=== PATIENT | female | born 1960 | race Caucasian/White ===

== ENCOUNTER 2019-08-12 12:58 | Outpatient (CLI) | payer OTHER ==
--- NOTE | 2019-08-12 14:28 | MRI ---
MRI LUMBAR SPINE WITH IV CONTRAST: Indications: Spinal cord mass. Correlation: Unenhanced MRI lumbar spine from [place], [place], 07-15-2019. These images are available for comparison . FINDINGS: There is enhancing intradural mass involving the cauda equina at the L3 level. This mass shows marked homogeneous enhancement and is circumscribed. This measures 1.5 cm craniocaudal x 1.0 cm AP dimensio n. The lumbar vertebrae maintain height and alignment. There is degenerative disc change at L5-S1 with l oss of disc space and degenerative disc at ===== signal changes. There is a disc protrusion at L5-S1 with associated broad based bulge. Small inferior extension of the disc protrusion centrally is noted . This abuts the anterior thecal sac without significant compression of the thecal sac. The thecal sa c is congenitally smaller without significant central canal stenosis at this location. The other disc levels are unremarkable with no other significant bulge or protrusion. There is facet arthrosis and hypertrophy at the other lumbar levels, however, no evidence of significant central can al or foraminal stenosis. IMPRESSION: 1. There is an intradural mass involving the cauda equina at the L3 level. Differential consideration s include ependymoma, schwannoma, and intradural metastasis. 2. Degenerative disc change at L5-S1 with a small central protrusion at this level as described above . POS: [facility]
== END 2019-08-12 12:59 | disposition home or self-care (01) ==
LOC: TBSIIMAG 12:58
PROVIDERS: ATTEND Neurological Surgery
DX: G95.89 Other specified diseases of spinal cord (principal); M51.37 Other intervertebral disc degeneration, lumbosacral region; M51.27 Other intervertebral disc displacement, lumbosacral region
CPT/HCPCS: 72149; 82565

== ENCOUNTER 2019-09-02 07:57 | Outpatient (CLI) | payer OTHER | END 2019-09-02 07:58 | disposition home or self-care (01) | LOC: LABBT 07:57 | PROVIDERS: ATTEND Neurological Surgery | DX: Z01.812 Encounter for preprocedural laboratory examination (principal); Z11.59 Encounter for screening for other viral diseases; G95.89 Other specified diseases of spinal cord | CPT/HCPCS: 87635; U0003 ==

== ENCOUNTER 2019-09-02 11:15 | Inpatient (IN) | payer OTHER ==
[2019-09-03 08:58] VITALS: BMI 24.7
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
[2019-09-13] MEDS ORDERED: Thrombin 5000 UNITS/5 ML VIAL ONE ×2 (06:11→07:44)
[2019-09-13] MEDS ORDERED: Bupivacaine PF 0.5% 30 ML VIAL ONE (06:11)
[2019-09-13] MEDS ORDERED: EPINEPHrine 1 MG/ML AMP ONE (06:11)
[2019-09-13] MEDS ORDERED: Midazolam HCl 2 mg/2 ml Vial ONE (06:40)
[2019-09-13] MEDS ORDERED: Fentanyl 100 MCG/2 ML VIAL ONE ×3 (06:40→10:46)
[2019-09-13] MEDS ORDERED: HYDROmorphone 2 MG/ML VIAL SLOW IVP PRN (10:18)
[2019-09-13] MEDS ORDERED: Meperidine HCl/PF 25 MG/ML VIAL SLOW IVP PRN (10:18)
[2019-09-13] MEDS ORDERED: PACU-Morphine 4MG/ML VIAL SLOW IVP PRN (10:18)
[2019-09-13] MEDS ORDERED: Ondansetron HCl/PF 4 MG/2 ML Vial IVP PRN (10:18)
[2019-09-13] MEDS ORDERED: Promethazine HCl 25 MG/ML VIAL IM PRN (10:18)
[2019-09-13] MEDS ORDERED: Acetaminophen/Codeine 30-300mg Tablet PO PRN (10:20)
[2019-09-13] MEDS ORDERED: Ondansetron PF 4 MG/2 ML Vial IVP PRN (10:20)
[2019-09-13] MEDS ORDERED: Mag-Al 1200 mg/1200 mg/30 ML UDCUP PO PRN (10:20)
[2019-09-13] MEDS ORDERED: Bisacodyl 10 MG SUPP PR PRN (10:20)
[2019-09-13] MEDS ORDERED: Morphine 2 MG/ML SYRINGE SLOW IVP PRN (10:20)
[2019-09-13] MEDS ORDERED: diphenhydrAMINE 50 MG/ML VIAL IVP PRN (10:20)
[2019-09-13] MEDS ORDERED: Acetaminophen 325 MG TAB PO PRN (10:20)
--- NOTE | 2019-09-13 10:38 | OP ---
DATE OF PROCEDURE: 09/13/2019 DISPATCH OFFICER: David López PA-C. INDICATION: Obtain diagnosis and prevent neurologic decline. DIAGNOSIS: Intrathecal lumbar mass. PROCEDURES: L3-L4 laminectomy, opening of the thecal sac, resection of intrathecal tumor, and closure primarily of the dura. ANESTHESIA: General. DESCRIPTION OF PROCEDURE: The patient was brought into the operating room and placed under general anesthesia. She was flipped from the supine to prone position on operating room table. A linear incision was planned over the L3 through top of the L5 segments. After prepping and draping and after an appropriate operative pause, the incision was created. The soft tissues were swept away from midline. Self-retaining retractors were placed. A C-arm image was obtained to confirm the appropriate level. An Adson rongeur was used to remove the spinous process of L3 and L4 as well as the inferior aspect of L2 and the superior aspect of L5. High-speed cutting drill bit as well as 2-, 3- and 4-mm Kerrisons were then used to perform a laminectomy spanning all of L3 and L4 as well as the inferior aspect of L2 and superior aspect of L5. The laminectomy was extended laterally to encompass the medial aspect of the facet joints. Judicious hemostasis was maintained throughout. Once the laminectomy was performed, there was mild discoloration in the dura around the upper aspect of L3 as well as slight bulges in the dura consistent with the location of the lesion as noted on the patient's MRI scan. The operating microscope was then brought into the operative field for microdissection techniques. An 11-blade knife was then used to perform a midline durotomy. 4-0 tack-up stitches were used to secure the dura. The underlying arachnoid was identified and also incised and secured to the dura using small vascular clips. After opening the dura and the arachnoid, we immediately identified a yellowish-shafer mass, that was not very well circumscribed. It did not appear to emanate from any single nerve root as is often the case with nerve sheath schwannomas. It appeared to be somewhat entangled and infiltrated by at least one nerve root and what was likely the filum terminale. Small patties were placed in the cephalad and caudal confines of the durotomy in order to minimize egress of blood and tumor. Using microsurgical techniques, the tumor was removed with near-total resection. There was tumor densely adhered and what appeared to be infiltrative of at least 2 nerve roots and that could not be safely removed. After removing the tumor, it was sent for permanent sections. The area was copiously irrigated. All of the nerve roots remained intact without any concern for significant damage to the nerve roots. The dura was then closed in a primary fashion using a 4-0 running Prolene suture. DuraSeal was then carefully placed over the suture line. There was no evidence for egress of spinal fluid following dural closure. The rest of the wound was then copiously irrigated again and hemostasis was maintained throughout. The wound was then closed in anatomic layers and a pressure dressing was applied. There were no known procedural complications. Job ID: [id number] [facility]
[2019-09-13] MEDS ORDERED: Glycopyrrolate 0.2 MG/ML 5 ML SYRINGE ONE (11:21)
[2019-09-13] MEDS ORDERED: diphenhydrAMINE 50 MG/ML VIAL ONE (11:21)
[2019-09-13] MEDS ORDERED: EPHEDRINE 25 MG/5 ML SYRINGE ONE (11:21)
[2019-09-13] MEDS ORDERED: Ketorolac Tromethamine 30 MG/ML VIAL ONE (11:21)
[2019-09-13] MEDS ORDERED: Rocuronium Bromide 10 MG/ML (10ML VIAL) ONE (11:21)
[2019-09-13] MEDS ORDERED: Dexamethasone 20 MG/5 ML VIAL ONE (11:21)
[2019-09-13] MEDS ORDERED: PROPOFOL 200 MG/20 ML VIAL ONE (11:21)
[2019-09-13] MEDS ORDERED: Ondansetron PF 4 MG/2 ML Vial ONE (11:21)
[2019-09-13] MEDS: Acetaminophen/Codeine 30-300mg Tablet PO PRN ×3 (12:27→21:24)
[2019-09-13] MEDS: Cyclobenzaprine 10 MG TAB PO PRN ×2 (13:49→21:56)
[2019-09-13] MEDS: CEFAZOLIN 2 GM in Premix Bag 1 BAG IVPB SCH ×2 (13:50→21:17)
[2019-09-13] MEDS: Sodium Chloride 0.9% 1,000 ML IV SCH ×2 (18:13→23:59)
[2019-09-13] MEDS ORDERED: traZODone HCl 50 MG TAB PO SCH (21:00)
[2019-09-14] MEDS: Acetaminophen/Codeine 30-300mg Tablet PO PRN ×2 (03:11→08:40)
[2019-09-14 06:23] LABS: #Lymphocytes 1.3 thou/uL (1.20-3.40); #Monocytes 0.9 thou/uL (0.11-0.59); #Neutrophils 5.5 thou/uL (1.40-6.50); %Eosinophils 0.2 % (0.0-10.0); %Lymphocytes 17.3 % (21.0-51.0); %Monocytes 11.6 % (0.0-10.0); %Neutrophils 70.8 % (42.0-75.0); Mean Corpuscular HGB CONC 34.5 g/dL (32.0-36.0); Mean Corpuscular Hemoglobin 34.1 pg (27.0-31.0); Mean Corpuscular Volume 98.9 fL (78.0-98.0); Mean Platelet Volume 8.6 fL (7.4-10.4); Platelet Count 169 thou/uL (130-400); RBC Distribution Width 11.7 % (11.5-14.5); White Blood Cell (WBC) Count 7.7 thou/uL (4.8-10.8)
[2019-09-14 06:44] LABS: Anion Gap 10 mmol/L (10-20); BUN (Urea Nitrogen) 18 mg/dL (9.8-20.1); Calc. Creatinine Clearance 54 mL/min (70-130); Calcium 8.8 mg/dL (7.8-10.44); Carbon Dioxide 31 mmol/L (22-29); Chloride 105 mmol/L (98-107); Estimated GFR-MDRD 50; Glucose 107 mg/dL (70-105); Potassium 3.7 mmol/L (3.5-5.1); Sodium 142 mmol/L (136-145)
[2019-09-14 08:07] VITALS: BP 107/67; TEMP 98.3
[2019-09-14] MEDS ORDERED: Lisinopril/Hydrochlorothiazide 20 mg/12.5 mg Tablet PO SCH (09:00)
[2019-09-14] MEDS ORDERED: Loratadine 10 MG TAB PO SCH (09:00)
--- NOTE | 2019-09-14 11:10 | PRG ---
DATE OF SERVICE: 09/14/2019 Ms. Bender is doing very well, postoperative day 1. She has minimal postural headache, but nothing that has kept her from mobilizing. She has excellent strength in her lower extremities with no reports of pain. Her dressing is dry. I went over any issues to observe for such as CSF, hypotension symptoms, and wound drainage specifically related to CSF, and she understands these. Let her go home, and followup is arranged. Job ID: [id number]
--- NOTE | 2019-09-17 07:23 | PQF ---
ARANZA DUQUE JASON MD [id number] [facility] B- [id number] CLINICAL DOCUMENTATION CLARIFICATION FORM: POST DISCHARGE Addendum to original discharge summary date: ____ Late entry note date: __ DATE: 09/17/2019 ATTN:Alen Rick Please exercise your independent, professional judgment in responding to the clarification form. 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 [ ] Yes, this is a diagnosis for this patient [ ] Other (additional comments): [ ] Unable to determine For continuity of documentation, please document condition throughout progress notes and discharge summary. Thank You. CLINICAL INDICATORS - SIGNS/ SYMPTOMS / LABS / RESULTS AND LOCATION IN MR Path 09/12 "Lumbar myoxopapillary ependymoma" 09/12 "MRI of lumbar spine suspicious for intradural mass" HP 09/12 "Chronic back pain" RISK FACTORS / RESULTS AND LOCATION IN MR 58 years old female-HP 09/12 Intrathecal lumbar mass-OP Note 09/12 TREATMENTS / RESULTS AND LOCATION IN MR Resection of intrathecal tumor-OP Note 09/12 (This form is maintained as a part of the permanent medical record) 2014 [employer]. All Rights Reserved [email or web address] [phone] [facility]AMPUSMickey
== END 2019-09-14 10:27 | disposition home or self-care (01) | DRG 30 ==
LOC: UNDOADMIN 09-13 05:51 → SURG A 09-13 05:51 → SURG B 09-13 13:04
PROVIDERS: ADMIT Neurological Surgery; ATTEND Neurological Surgery
PROC: 00BY0ZZ Excision of Lumbar Spinal Cord, Open Approach (ICD-10-PCS; principal; 2019-09-13)
PROC: 8E0WXBZ Computer Assisted Procedure of Trunk Region (ICD-10-PCS; 2019-09-13)
DX: G95.89 Other specified diseases of spinal cord (principal); G89.29 Other chronic pain; F32.9 Major depressive disorder, single episode, unspecified; F41.9 Anxiety disorder, unspecified; I10 Essential (primary) hypertension; J30.2 Other seasonal allergic rhinitis; R51 Headache; Z98.1 Arthrodesis status; Z98.51 Tubal ligation status
CPT/HCPCS: 36415; 76000; 80048; 85025; 88307; 88341; 88342; 88360; J0171; J0690; J1100; J1200; J1885; J2250; J2405; J2704; J3010; S0020

== ENCOUNTER 2019-09-09 07:15 | Outpatient (CLI) | payer OTHER ==
[2019-09-10 13:10] LABS: SARS-CoV-2 MS2 Positive; SARS-CoV-2 N Gene Negative; SARS-CoV-2 S Gene Negative; SARS-CoV-2 orf1ab Negative
== END 2019-09-09 07:16 | disposition home or self-care (01) ==
LOC: LABBT 07:15
PROVIDERS: ATTEND Neurological Surgery
DX: Z01.812 Encounter for preprocedural laboratory examination (principal); Z11.59 Encounter for screening for other viral diseases; G95.89 Other specified diseases of spinal cord
CPT/HCPCS: 87635; U0003